=== PATIENT | male | born 1990 | race African-American/Black ===

== ENCOUNTER 2019-07-29 18:21 | Emergency (ER) | payer OTHER ==
[2019-07-29 18:40] LABS: ABS Eosinophils 0.1 10^3/ul (0-0.6); ABS Lymphocytes 3.4 10^3/ul (1.0-4.8); ABS Monocytes 0.7 10^3/ul (0-0.8); ABS Neutrophils 1.7 10^3/ul (1.5-7.7); Eosinophil % 2.2 %; Hematocrit 41 % (42-52); Hemoglobin 14.6 g/dL (14.0-18.0); Lymphocyte % 56.9 %; Mean Corpuscular HGB Conc 36 g/dL (31-36); Mean Corpuscular Hemoglobin 29 pg (27-31); Mean Corpuscular Volume 80 fL (80-94); Mean Platelet Volume 7.7 fL (7.4-10.4); Nucleated Red Blood Cells % 0.2; Platelet Count 299 10^3/uL (150-450); Red Blood Count 5.08 10^6 /uL (4.18-5.48); Red Cell Distribution Width 13 % (10-15)
[2019-07-29 18:45] LABS: INR 1.03 (0.82-1.09)
[2019-07-29 18:57] LABS: Albumin 4.6 g/dL (3.2-5.2); Albumin/Globulin Ratio 1.4 (1-3); BUN/Creatinine Ratio 9.9 (8-20); EGFR African American 118.4 (>60); EGFR Non-African American 97.8 (>60); Globulin 3.3 g/dL (2-4); Potassium 3.5 mmol/L (3.5-5.0); Total Bilirubin 0.6 mg/dL (0.2-1.0); Total Protein 7.9 g/dL (6.4-8.9)
--- NOTE | 2019-07-29 19:13 | ED ---
HPI Chest Pain - HPI Summary HPI Summary: Patient is a 29 y/o M presenting to [facility] with complaints of chest pain and SOB. Chest pain is characterized as a sharp sensation. He states that he has been experiencing episodes of chest pain for the past three years but has been having more episodes recently. He notes that he has been recently experiencing SOB as well. He states that he feels SOB currently and states that exertion does not worsen his SOB. BLE edema is denied. No recent travel noted. He denies PMHx as well as FMHx of cardiac disease and blood clots. Patient states that he rarely smokes. Home medications and allergies are reviewed. Home Medications Medication Instructions Recorded Confirmed Type Buspirone HCl 1 tab PO BID PRN 07/29/19 07/29/19 History - History of Current Complaint Chief Complaint: EDChestWallPain Time Seen by Provider: 07/29/19 18:45 Hx Obtained From: Patient Onset/Duration: Still Present Timing: Lasting Weeks Current Severity: Moderate Pain Intensity: 6 Pain Scale Used: 0-10 Numeric Character: Sharp/Stabbing Aggravating Factor(s): Nothing Associated Signs and Symptoms: Positive: Chest Pain, Shortness of Breath. Negative: Swelling, Calf Pain/Swelling, Edema - Allergy/Home Medications Allergies/Adverse Reactions: Allergies Allergy/AdvReac Type Severity Reaction Status Date / Time No Known Allergies Allergy Verified 07/29/19 18:33 Home Medications: Home Medications Buspirone HCl 1 tab PO BID PRN 07/29/19 [History Confirmed 07/29/19] PMH/Surg Hx/FS Hx/Imm Hx Sensory History: Denies: Hx Legally Blind, Hx Deafness Opthamlomology History: Denies: Hx Legally Blind EENT History: Denies: Hx Deafness - Immunization History Immunizations Up to Date: Yes Infectious Disease History: No Infectious Disease History: Denies: Traveled Outside the [place] in Last 30 Days - Family History Known Family History: Negative: Cardiac Disease, Blood Disorder - no FMHx of blood clots - Social History Alcohol Use: Occasionally Substance Use Type: Reports: None Hx Tobacco Use: No Smoking Status (MU): Never Smoked Tobacco Review of Systems Positive: Chest Pain Positive: Shortness Of Breath All Other Systems Reviewed And Are Negative: Yes Physical Exam - Summary Physical Exam Summary: Constitutional: Well-developed, Well-nourished, Alert. (-) Distressed Skin: Warm, Dry HENT: Normocephalic; Atraumatic Eyes: Conjunctiva normal Neck: Musculoskeletal ROM normal neck. (-) JVD, (-) Stridor, (-) Nuchal rigidity Cardio: Tachycardic, Heart sounds normal; Intact distal pulses; Radial pulses are 2+ and symmetric. (-) Murmur Pulmonary/Chest wall: Effort normal. (-) Respiratory distress, (-) Wheezes, (-) Rales Abd: Soft, (-) tenderness, (-) Distension, (-) Guarding, (-) Rebound Musculoskeletal: (-) Edema Lymph: (-) Cervical adenopathy Neuro: Alert, Oriented x3 Psych: Mood and affect Normal Triage Information Reviewed: Yes Vital Signs On Initial Exam: Initial Vitals Temp Pulse Resp BP Pulse Ox 99.6 F 98 16 148/93 97 07/29/19 18:31 07/29/19 18:31 07/29/19 18:31 07/29/19 18:31 07/29/19 18:31 Vital Signs Reviewed: Yes Procedures - Sedation Patient Received Moderate/Deep Sedation with Procedure: No Diagnostics - Vital Signs Vital Signs Temp Pulse Resp BP Pulse Ox 07/29/19 18:39 106 24 158/96 98 07/29/19 18:31 99.6 F 98 16 148/93 97 - Laboratory Lab Results: Lab Results 07/29/19 07/29/19 07/29/19 Range/Units 18:34 18:34 18:34 WBC 6.0 (3.5-10.8) 10^3/uL RBC 5.08 (4.18-5.48) 10^6 /uL Hgb 14.6 (14.0-18.0) g/dL Hct 41 L (42-52) % MCV 80 (80-94) fL MCH 29 (27-31) pg MCHC 36 (31-36) g/dL RDW 13 (10-15) % Plt Count 299 (150-450) 10^3/uL MPV 7.7 (7.4-10.4) fL Neut % (Auto) 28.6 % Lymph % (Auto) 56.9 % Snyder % (Auto) 12.0 % Eos % (Auto) 2.2 % Baso % (Auto) 0.3 % Absolute Neuts (auto) 1.7 (1.5-7.7) 10^3/ul Absolute Lymphs (auto) 3.4 (1.0-4.8) 10^3/ul Absolute Monos (auto) 0.7 (0-0.8) 10^3/ul Absolute Eos (auto) 0.1 (0-0.6) 10^3/ul Absolute Basos (auto) 0.0 (0-0.2) 10^3/ul Absolute Nucleated RBC 0.0 10^3/ul Nucleated RBC % 0.2 INR (Anticoag Therapy) 1.03 (0.82-1.09) Sodium 137 (135-145) mmol/L Potassium 3.5 (3.5-5.0) mmol/L Chloride 101 (101-111) mmol/L Carbon Dioxide 27 (22-32) mmol/L Anion Gap 9 (2-11) mmol/L BUN 9 (6-24) mg/dL Creatinine 0.91 (0.67-1.17) mg/dL Est GFR ( Amer) 118.4 (>60) Est GFR (Non-Af Amer) 97.8 (>60) BUN/Creatinine Ratio 9.9 (8-20) Glucose 86 (70-100) mg/dL Calcium 10.0 (8.6-10.3) mg/dL Total Bilirubin 0.60 (0.2-1.0) mg/dL AST 22 (13-39) U/L ALT 29 (7-52) U/L Alkaline Phosphatase 65 (34-104) U/L Troponin I 0.00 (<0.03) ng/mL Total Protein 7.9 (6.4-8.9) g/dL Albumin 4.6 (3.2-5.2) g/dL Globulin 3.3 (2-4) g/dL Albumin/Globulin Ratio 1.4 (1-3) Result Diagrams: 07/29/19 18:34 07/29/19 18:34 Lab Statement: Any lab studies that have been ordered have been reviewed, and results considered in the medical decision making process. - Radiology CXR Radiology Interpretation Completed By: ED Physician Summary of Radiographic Findings: No acute process, pending official report. - EKG 1826 Cardiac Rate: Tachycardia - rate of 101 BPM EKG Rhythm: Sinus Tachycardia Summary of EKG Findings: EKG showed sinus tachycardia with rate of 101 BPM, T- wave inversions in lead III, left axis deviation, no STEMI. ED physician has reviewed and interpreted this EKG. Chest Pain Course/Dx - Course Course Of Treatment: 29 y/o male p/w CP. Chest Pain DDX: The patient is well appearing, with stable vitals (mild tachycardia). Given the patient's clinical presentation, highest on differential is atypical CP. Although less likely, differential also includes the following: --Pneumothorax: Equal breath sounds, story inconsistent since gradual onset of symptoms. CXR shows no evidence of pneumothorax. Unlikely. --Cardiac tamponade: The history and physical are not concerning for tamponade. No Pulsus Paradoxus, no tachypnea. Unlikely. -- Mediastinitis or esophageal rupture: The history is not consistent, as the patient has had no recent history of significant wretching, instrumentation, or mediastinal surgeries. Unlikely. --Aortic dissection: The patient does not describe the classical tearing chest pain radiating into the back, and the CXR does not show mediastinal widening or other signs of aortic dissection. Unlikely. --PE: Vitals wnl (not hypoxic, tachycardic or tachypneic). Wells low risk, d dimer negative. --ACS: The initial EKG shows no ischemic changes. The initial troponin is not elevated. Heart score 1. - Diagnoses Provider Diagnoses: Chest pain, SOB (shortness of breath) Discharge ED - Sign-Out/Discharge Documenting (check all that apply): Patient Departure - discharge - Discharge Plan Condition: Stable Disposition: HOME Patient Education Materials: Chest Pain (ED) Referrals: [facility] [Outside] Additional Instructions: You were seen in the emergency department for chest pain. Your EKG (heart tracing), labs and chest x-ray did not show any cause for pain. Important that you follow up with you primary care doctor in the next 1-2 days. Please return to the emergency department for continued chest pain, trouble breathing, passing out, or if you're concerned. It was a pleasure taking care of you today. - Billing Disposition and Condition Condition: STABLE Disposition: Home - Attestation Statements Document Initiated by Scribe: Yes Documenting Scribe: GRISEL MEDEIROS Provider For Whom Preetie is Documenting (Include Credential): DELFIN MA MD Scribe Attestation: I, GRISEL MEDEIROS, scribed for DELFIN MA MD on 07/29/19 at 1945. Scribe Documentation Reviewed: Yes Provider Attestation: The documentation as recorded by the scribe, GRISEL MEDEIROS accurately reflects the service I personally performed and the decisions made by me, DELFIN MA MD Status of Scribe Document: Viewed
[2019-07-29 20:04] VITALS: BP 134/93
== END 2019-07-29 20:04 | disposition home or self-care (01) ==
LOC: ED 18:21
DX: R07.9 Chest pain, unspecified (principal); R06.02 Shortness of breath; R94.31 Abnormal electrocardiogram [ECG] [EKG]
CPT/HCPCS: 36415; 71046; 80053; 84484; 85025; 85379; 85610; 93005; 99283